=== PATIENT | male | born 1960 | race African-American/Black ===

== ENCOUNTER 2019-01-04 11:55 | Emergency (ER) | payer OTHER ==
[~2019-01-04] VITALS: Ht 180.3 cm; Wt 65.8 kg
[2019-01-04 15:30] VITALS: BP 132/80
== END 2019-01-04 15:30 | disposition home or self-care (01) ==
LOC: ER 11:55
DX: M79.642 Pain in left hand (principal); M79.89 Other specified soft tissue disorders; T69.9XXA Effect of reduced temperature, unspecified, initial encounter

== ENCOUNTER 2019-01-05 16:00 | Emergency (ER) | payer OTHER ==
[~2019-01-05] VITALS: Ht 180.3 cm; Wt 65.8 kg
[2019-01-05 17:36] VITALS: BP 122/63
== END 2019-01-05 17:37 | disposition home or self-care (01) ==
LOC: ER 16:00
DX: M79.602 Pain in left arm (principal); Z59.0 Homelessness; X31.XXXA Exposure to excessive natural cold, initial encounter; Y93.89 Activity, other specified; Y92.89 Other specified places as the place of occurrence of the external cause; Y99.8 Other external cause status